=== PATIENT | male | born 1945 | race Caucasian/White ===

== ENCOUNTER 2019-04-14 10:58 | Outpatient (CLI) | payer MEDICARE, BC ==
[2019-04-14] MEDS ORDERED: multivitamin PO (12:42)
[2019-04-14] MEDS ORDERED: fish oil PO (12:42)
[2019-04-14] MEDS ORDERED: LISI40TA PO (12:42)
[2019-04-14] MEDS ORDERED: CLOP75TA PO (12:42)
[2019-04-14] MEDS ORDERED: ATOR40TA78 PO (12:42)
[2019-04-14] MEDS ORDERED: CARV-39 PO (12:42)
[2019-04-14] MEDS ORDERED: ASPI-496 PO (12:42)
[2019-04-14] MEDS ORDERED: GLIP5TAB10 PO (12:42)
[2019-04-14] MEDS ORDERED: AMLO10TA8 PO (12:42)
[2019-04-14] MEDS ORDERED: zinc PO (12:42)
[2019-04-24] MEDS ORDERED: HYDR-3240 PO (09:43)
[2019-04-24] MEDS ORDERED: METH750T87 PO (09:45)
== END 2019-04-14 23:59 | disposition home or self-care (01) ==
LOC: STAR 10:58
PROVIDERS: ATTEND Neurological Surgery
DX: Z02.9 Encounter for administrative examinations, unspecified (principal)